=== PATIENT | female | born 1995 | race American Indian/Alaskan Native ===

== ENCOUNTER 2017-11-29 07:04 | Emergency (ER) | payer MEDICAID, OTHER ==
[2017-11-29 07:10] VITALS: BMI 26.7
--- NOTE | 2017-11-29 07:27 | C.PDOC ---
History Of Present Illness 22 year old female presents to ED for evaluation of sharp throbbing back pain and lower abdominal pain since yesterday while at work. Also reports dysuria. Notes her symptoms feel similar to prior UTI. She reports taking Azo without complete relief. Denies trauma, injury, incontinence, extremity weakness/ numbness, fever, chills, nausea, vomiting, diarrhea, or constipation. LMP: 11/19. Time Seen by Provider: 11/29/17 07:10 Chief Complaint (Nursing): Back Pain History Per: Patient History/Exam Limitations: no limitations Onset/Duration Of Symptoms: Days Current Symptoms Are (Timing): Still Present Quality Of Discomfort: Sharp, Pressure Previous Symptoms: Back Pain. denies: Neck Pain, Prior Injury, Prior Surgery Associated Symptoms: None. denies: Incontinence, New Weakness, New Numbness Exacerbating Factor(s): Nothing Recent travel outside of the [place]: No Additional History Per: Patient Past Medical History Reviewed: Historical Data, Nursing Documentation, Vital Signs Vital Signs: Last Vital Signs Temp 98 F 11/29/17 08:52 Pulse 80 11/29/17 08:52 Resp 18 11/29/17 08:52 BP 117/71 11/29/17 08:52 Pulse Ox 96 11/29/17 08:52 Family History: States: Unknown Family Hx - Social History Hx Alcohol Use: No Hx Substance Use: No Review Of Systems Except As Marked, All Systems Reviewed And Found Negative. Constitutional: Negative for: Fever, Chills Gastrointestinal: Positive for: Abdominal Pain. Negative for: Nausea, Vomiting , Diarrhea, Constipation Genitourinary: Positive for: Dysuria. Negative for: Hematuria Musculoskeletal: Positive for: Back Pain Neurological: Negative for: Weakness, Numbness Physical Exam - Physical Exam Appears: Non-toxic, Other (Uncomfortable) Skin: Normal Color, Warm, Dry Head: Atraumatic, Normacephalic Eye(s): bilateral: Normal Inspection, EOMI Oral Mucosa: Moist Neck: Normal ROM, Supple Cardiovascular: Rhythm Regular, No Murmur Respiratory: Normal Breath Sounds, No Rales, No Rhonchi, No Wheezing Gastrointestinal/Abdominal: Soft, Tenderness (mild suprapubic), No Guarding, No Rebound Back: Normal Inspection, No CVA Tenderness, No Vertebral Tenderness, No Paraspinal Tenderness Extremity: Normal ROM, No Deformity Extremity: Bilateral: Atraumatic Neurological/Psych: Oriented x3, Normal Speech ED Course And Treatment O2 Sat by Pulse Oximetry: 95 (RA) Pulse Ox Interpretation: Normal Medical Decision Making Medical Decision Making: Impression: 22 year old female with mild lower abdominal pain, back pain, and dysuria. Plan: * Urinalysis Reassess Urine shows nitrates, LE, WBCs. Will send culture and treat with cipro. Patient given follow up instructions. Instructed to return to ER if symptoms worsen or new symptoms arise. Disposition Counseled Patient/Family Regarding: Diagnosis, Need For Followup, Rx Given - Disposition Referrals: [facility] [Outside] [facility] [Outside] Disposition: HOME/ ROUTINE Disposition Time: 08:36 Condition: STABLE Additional Instructions: Take antibiotic twice daily for 5 days and be sure to finish taking all of antibiotic. Drink plenty of fluids. Take Tylenol or Motrin for pain. 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 - Scribe Statement The provider has reviewed the documentation as recorded by the Lakeshaibjulia Zhou All medical record entries made by the Lakeshaibjulia were at my direction and personally dictated by me. I have reviewed the chart and agree that the record accurately reflects my personal performance of the history, physical exam, medical decision making, and the department course for this patient. I have also personally directed, reviewed, and agree with the discharge instructions and disposition.
[2017-11-29 07:56] LABS: HCG,QUALITATIVE URINE NEGATIVE (NEGATIVE)
[2017-11-29 08:34] LABS: URINE BACTERIA MANY (<OCC); URINE BILIRUBIN NEGATIVE (NEGATIVE); URINE BLOOD 2+ (NEGATIVE); URINE CLARITY Hazy (Clear); URINE COLOR Amber (YELLOW); URINE GLUCOSE (UA) NORMAL (Normal); URINE LEUKOCYTE ESTERASE 2+ Leu/uL (Negative); URINE PROTEIN 2+ mg/dL (NEGATIVE); WBC CLUMPS FEW /hpf
[2017-11-29 09:00] VITALS: BP 117/71; PULSE 80; RESP 18; TEMP 98
[2017-11-29 10:35] VITALS: O2SAT 95
== END 2017-11-29 08:53 | disposition home or self-care (01) ==
LOC: C.ER 07:04
DX: N39.0 Urinary tract infection, site not specified (principal)

== ENCOUNTER 2018-01-05 19:26 | Emergency (ER) | payer MEDICAID ==
[2018-01-05 19:27] VITALS: BMI 26.7
[2018-01-05 19:33] VITALS: BP 122/79; PULSE 93; TEMP 99.1; O2SAT 99
[2018-01-05] MEDS ORDERED: Albuterol-Ipratrop 3 mg / 0.5 (3 ml) UD INH STA (19:45)
[2018-01-05] MEDS ORDERED: Albuterol 0.083% Inhal Sol (2.5 mg/3 mL) UD IH STA (20:00)
--- NOTE | 2018-01-05 20:06 | C.PDOC ---
History Of Present Illness 22 year old female presents to the emergency department with complaints of a dry cough, generalized body aches, chills, sore throat, and ear aches for the last two weeks. Patient states that she has been taking OTC medications with no relief. Patient states that today she experienced shortness of breath and chest tightness so she decided to present to the ED. Time Seen by Provider: 01/05/18 19:34 Chief Complaint (Nursing): Cough, Cold, Congestion History Per: Patient History/Exam Limitations: no limitations Onset/Duration Of Symptoms: Other (two weeks) Current Symptoms Are (Timing): Worse Location Of Pain: Ear(s), Throat, Diffuse Myalgias Associated Symptoms: Chills, Sore Throat, Myalgias, Other (earaches, shortness of breath, chest tightness) Ear Symptoms: Bilateral: Ear Pain Past Medical History Reviewed: Historical Data, Nursing Documentation, Vital Signs Vital Signs: Last Vital Signs Temp 99.1 F 01/05/18 19:30 Pulse 93 H 01/05/18 19:30 Resp 16 01/05/18 19:30 BP 122/79 01/05/18 19:30 Pulse Ox 99 01/05/18 20:45 - Medical History PMH: No Chronic Diseases Surgical History: No Surg Hx Family History: States: No Known Family Hx - Social History Hx Alcohol Use: No Hx Substance Use: No Review Of Systems Except As Marked, All Systems Reviewed And Found Negative. Constitutional: Positive for: Chills, Malaise ENT: Positive for: Ear Pain, Throat Pain Cardiovascular: Positive for: Other (chest tightness) Respiratory: Positive for: Shortness of Breath Physical Exam - Physical Exam Appears: Non-toxic, No Acute Distress Skin: Warm, Dry Head: Atraumatic, Normacephalic Eye(s): bilateral: Normal Inspection, PERRL, EOMI Ear(s): Bilateral: Normal Nose: Normal Oral Mucosa: Moist Throat: Normal, No Erythema, No Exudate Neck: Normal, Trachea Midline, Supple Chest: Symmetrical, No Tenderness Cardiovascular: Rhythm Regular, No Murmur Respiratory: Decreased Breath Sounds (minimally), No Rales, Rhonchi, Wheezing ( exp,minimal) Extremity: Normal ROM Neurological/Psych: Oriented x3, Normal Speech, Normal Cognition ED Course And Treatment O2 Sat by Pulse Oximetry: 99 (RA) Pulse Ox Interpretation: Normal - Radiology CXR: Interpreted by Me, Viewed By Me CXR Interpretation: Yes: No Acute Disease. No: Infiltrates Progress Note: bPlan: CXR. Duoneb 3ml INH. Motrin 600mg PO. Prednisone 40mg PO. Reevaluation Time: 20:37 Reassessment Condition: Improved (Pt feels better, appears comfortable in no distress. Will follwo up with PMD , RX given. Return precautions discusssed) Disposition - Disposition Referrals: [facility] [Outside] Disposition: HOME/ ROUTINE Disposition Time: 20:38 Condition: STABLE Additional Instructions: Increase PO fluids Use medications as directed Return to ER if worse Prescriptions: Albuterol HFA [Ventolin HFA 90 mcg/actuation (8 g)] 2 puff IH [id number] #1 inhaler Azithromycin [Zithromax] 250 mg PO DAILY #6 tab Benzonatate [Tessalon Perles] 100 mg PO TID #14 sgl predniSONE [Prednisone] 40 mg PO DAILY #6 tab Instructions: Acute Bronchitis, Adult (DC) Forms: [employer] (Yi), Work Excuse - Clinical Impression Clinical Impression: Acute bronchitis - PA / SALESPERSON FLYING [employer]QUAD / Resident Statement MD/DO has reviewed & agrees with the documentation as recorded. - Scribe Statement The provider has reviewed the documentation as recorded by the Scribe (Faisal Nieves) All medical record entries made by the Scribe were at my direction and personally dictated by me. I have reviewed the chart and agree that the record accurately reflects my personal performance of the history, physical exam, medical decision making, and the department course for this patient. I have also personally directed, reviewed, and agree with the discharge instructions and disposition.
[2018-01-05] MEDS ORDERED: Albuterol-Ipratrop 3 mg / 0.5 (3 ml) UD ONE (20:08)
[2018-01-05 20:51] VITALS: RESP 20
--- NOTE | 2018-01-06 10:22 | RAD ---
Date of service: 01/05/2018 HISTORY: cough,SOB COMPARISON: No prior. TECHNIQUE: Chest PA and lateral FINDINGS: LUNGS: No active pulmonary disease. PLEURA: No significant pleural effusion identified. No pneumothorax apparent. CARDIOVASCULAR: Normal. OSSEOUS STRUCTURES: No significant abnormalities. VISUALIZED UPPER ABDOMEN: Normal. OTHER FINDINGS: Radiodensity suggestive of a nipple ring noted right breast. IMPRESSION: No acute cardiopulmonary disease appreciated.
== END 2018-01-05 20:50 | disposition home or self-care (01) ==
LOC: C.ER 19:26
DX: J20.9 Acute bronchitis, unspecified (principal)

== ENCOUNTER 2018-05-18 11:37 | Emergency (ER) | payer MEDICAID ==
[2018-05-18 11:37] VITALS: BMI 26.7
[2018-05-18 11:43] VITALS: RESP 18
--- NOTE | 2018-05-18 13:22 | RAD ---
PROCEDURE: Left Knee Radiographs. HISTORY: fall COMPARISON: None available. FINDINGS: BONES: No acute displaced fracture. JOINTS: No dislocation. JOINT EFFUSION: No significant joint effusion. OTHER FINDINGS: None. IMPRESSION: No acute displaced fracture, dislocation, or significant joint effusion identified. If symptoms persist, or if there is continued clinical concern, x-ray follow-up in 7-10 days should be considered.
--- NOTE | 2018-05-18 13:57 | C.PDOC ---
History Of Present Illness 22 y/o female presents to the ED for evaluation of left knee pain which began 3 days ago. 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 Patient reports she had pain right away, but the pain then subsided. Patient has been able to walk on the area. Patient noticed the area appeared more swollen today, and presents to the ED for further evaluation. She denies head injury, LOC, extremity numbness/weakness. Time Seen by Provider: 05/18/18 12:11 Chief Complaint (Nursing): Lower Extremity Problem/Injury History Per: Patient History/Exam Limitations: no limitations Onset/Duration Of Symptoms: Days (3) Current Symptoms Are (Timing): Still Present Additional History Per: Patient - Knee Description Of Injury: Fell Past Medical History Reviewed: Historical Data, Nursing Documentation, Vital Signs Vital Signs: Last Vital Signs Temp 97.4 F L 05/18/18 11:39 Pulse 60 05/18/18 11:39 Resp 18 05/18/18 11:39 BP 121/81 05/18/18 11:39 Pulse Ox 100 05/18/18 11:39 - Medical History PMH: No Chronic Diseases Surgical History: No Surg Hx Family History: States: Unknown Family Hx - Social History Hx Alcohol Use: No Hx Substance Use: No Review Of Systems Musculoskeletal: Positive for: Other (left knee pain ) Neurological: Negative for: Weakness, Numbness, Other (head injury ) Physical Exam - Physical Exam Appears: Non-toxic, No Acute Distress Skin: Normal Color, Warm, Dry, No Other (abrasions, erythema or warmth to left knee ) Head: Atraumatic, Normacephalic Eye(s): bilateral: Normal Inspection Extremity: Normal ROM, Tenderness (diffuse, over left knee ), No Calf Tenderness, Capillary Refill (less than 2 seconds ), Swelling (left suprapatellar) Pulses: Left Dorsalis Pedis: Normal, Right Dorsalis Pedis: Normal Neurological/Psych: Oriented x3, Normal Speech, Normal Cognition, Normal Motor, Normal Sensation Gait: Steady ED Course And Treatment O2 Sat by Pulse Oximetry: 100 (on RA) Pulse Ox Interpretation: Normal - Other Rad left knee XR X-Ray: Viewed By Me, Read By Radiologist Interpretation: PROCEDURE: Left Knee Radiographs. HISTORY: fall. COMPARISON: None available. FINDINGS: BONES: No acute displaced fracture. JOINTS: No dislocation. JOINT EFFUSION: No significant joint effusion. OTHER FINDINGS: None. IMPRESSION: No acute displaced fracture, dislocation, or significant joint effusion identified. If symptoms persist, or if there is continued clinical concern, x-ray follow-up in 7-10 days should be considered. Progress Note: left knee XR ordered and reviewed. On reassessment, patient is resting comfortably, showing no signs of distress and is stable for discharge. Knee immobilizer and crutces provided. Patient will be discharged with Motrin for pain and is advised to f/u orthopedic care within 1-2 days for further evaluation. Disposition - Disposition Referrals: David Springer MD [Staff Provider] - Disposition: HOME/ ROUTINE Disposition Time: 13:50 Condition: STABLE Additional Instructions: Follow up with Orthopedist within 1-2 days. Return to ED if feel worse. Prescriptions: Ibuprofen [Motrin Tab] 600 mg PO Q8 #30 tab Instructions: Knee Sprain (DC) Forms: [employer] (Georgian), Work Excuse - Clinical Impression Clinical Impression: Knee sprain - PA / MANAGER PRODUCTION / Resident Statement MD/DO has reviewed & agrees with the documentation as recorded. - Scribe Statement The provider has reviewed the documentation as recorded by the Scribe (Rosie Zhou) All medical record entries made by the Scribe were at my direction and personally dictated by me. I have reviewed the chart and agree that the record accurately reflects my personal performance of the history, physical exam, medical decision making, and the department course for this patient. I have also personally directed, reviewed, and agree with the discharge instructions and disposition.
[2018-05-18 14:26] VITALS: BP 114/77; PULSE 64; TEMP 98.2
[2018-05-18 15:26] VITALS: O2SAT 100
== END 2018-05-18 14:18 | disposition home or self-care (01) ==
LOC: C.ER 11:37
DX: S83.92XA Sprain of unspecified site of left knee, initial encounter (principal); W01.0XXA Fall on same level from slipping, tripping and stumbling without subsequent striking against object, initial encounter

== ENCOUNTER 2018-05-21 13:15 | Emergency (ER) | payer MEDICAID ==
[2018-05-21 13:15] VITALS: BMI 26.7
[2018-05-21 13:31] VITALS: BP 122/69; PULSE 91; RESP 16; TEMP 98.2; O2SAT 95
--- NOTE | 2018-05-21 14:00 | C.PDOC ---
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 She was evaluated in the ED for complaints of left knee pain on 05/18 and underwent an XR which was negative. Patient was discharged with referral for orthopedic care and prescription for Motrin. Patient states she has not been able to schedule a follow-up appointment and has not had time to fill her prescription. She reports feeling a "cracking" when she bends and extends her knee. She denies any recent trauma/injuries or extremity numbness/weakness. Time Seen by Provider: 05/21/18 13:37 Chief Complaint (Nursing): Lower Extremity Problem/Injury History Per: Patient History/Exam Limitations: no limitations Onset/Duration Of Symptoms: Days Current Symptoms Are (Timing): Still Present Additional History Per: Patient - Knee Description Of Injury: Fell (left) Past Medical History Reviewed: Historical Data, Nursing Documentation, Vital Signs Vital Signs: Last Vital Signs Temp 98.2 F 05/21/18 13:28 Pulse 91 H 05/21/18 13:28 Resp 16 05/21/18 13:28 BP 122/69 05/21/18 13:28 Pulse Ox 95 05/21/18 13:28 - Medical History PMH: No Chronic Diseases Surgical History: No Surg Hx Family History: States: Unknown Family Hx - Social History Hx Alcohol Use: No Hx Substance Use: No Review Of Systems Musculoskeletal: Positive for: Other (left knee pain ) Neurological: Negative for: Weakness, Numbness Physical Exam - Physical Exam Appears: Non-toxic, No Acute Distress Skin: Normal Color, Warm, Dry, No Ecchymosis Head: Atraumatic, Normacephalic Eye(s): bilateral: Normal Inspection Extremity: Normal ROM, Tenderness (over left patella and quadriceps tendon), Capillary Refill (less than 2 seconds ), No Swelling (left knee ) Neurological/Psych: Oriented x3, Normal Speech, Normal Cognition Gait: Steady ED Course And Treatment O2 Sat by Pulse Oximetry: 95 (on RA ) Pulse Ox Interpretation: Normal Medical Decision Making Medical Decision Making: Patient already had negative knee XR 3 days ago. Has a knee immobilizer and an Rx for ibuprofen from her previous visit as well. She has not filled the Rx. Advised taking ibuprofen at home and following up with ortho or PMD. Patient made an appointment with her PMD for tomorrow. Stable for discharge home. Disposition - Disposition Disposition: HOME/ ROUTINE Disposition Time: 14:00 Condition: GOOD Additional Instructions: MARY PARHAM, thank you for letting us take care of you today. Your provider was Emiliana Upton MD and you were treated for LT KNEE PAIN. The emergency medical care you received today was directed at your acute symptoms. If you were prescribed any medication, please fill it and take as directed. It may take several days for your symptoms to resolve. Return to the Emergency Department if your symptoms worsen, do not improve, or if you have any other problems. Please contact your doctor or call one of the physicians/clinics you have been referred to that are listed on the Patient Visit Information form that is included in your discharge packet. Bring any paperwork you were given at discharge with you along with any medications you are taking to your follow up visit. Our treatment cannot replace ongoing medical care by a primary care provider outside of the emergency department. Thank you for allowing the [facility] team to be part of your care today. If you had an X-Ray or CT scan: A Radiologist will review the ED reading if any change in treatment is needed we will contact you. If you had a blood, urine, or wound culture: It will take several days for the results, if any change in treatment is needed we will contact you. If you had an STI test: It will take 48 hours for the results. Please call after 1 week if you have not heard back. Please follow up with your primary care physician and with orthopedics as referred during your previous visit. Take ibuprofen as prescribed during your pr evious visit. Instructions: Knee Sprain (DC) Forms: [employer] (French) - Clinical Impression Clinical Impression: Left knee sprain - Scribe Statement The provider has reviewed the documentation as recorded by the Scribe (Rosie Zhou) Provider Attestation: All medical record entries made by the Scribe were at my direction and personally dictated by me. I have reviewed the chart and agree that the record accurately reflects my personal performance of the history, physical exam, medical decision making, and the department course for this patient. I have also personally directed, reviewed, and agree with the discharge instructions and disposition.
== END 2018-05-21 14:11 | disposition home or self-care (01) ==
LOC: C.ER 13:15
DX: S83.92XA Sprain of unspecified site of left knee, initial encounter (principal); W19.XXXA Unspecified fall, initial encounter

== ENCOUNTER 2018-07-20 12:14 | Emergency (ER) | payer MEDICAID ==
[2018-07-20 12:15] VITALS: BMI 26.7
[2018-07-20 12:27] VITALS: TEMP 98; O2SAT 100
--- NOTE | 2018-07-20 13:51 | C.PDOC ---
History Of Present Illness The patient reports that she woke up this morning with mid sternal chest pain which is described as sharp and non-radiating. The patient states that she works doing a lot of heavy lifting. Patient reports that pain is worsened with movement and deep breathing. Denies fever, numbness, weakness, cough, vomiting, diaphoresis. Time Seen by Provider: 07/20/18 12:41 Chief Complaint (Nursing): Chest Pain History Per: Patient History/Exam Limitations: no limitations Onset/Duration Of Symptoms: Gradual Current Symptoms Are (Timing): Still Present Pain Scale Rating Of: 6 Quality: Sharp Exacerbating Factors: Turning, Movement Recent travel outside of the [place]: No Past Medical History Reviewed: Historical Data, Nursing Documentation, Vital Signs Vital Signs: Last Vital Signs Temp 98 F 07/20/18 12:21 Pulse 65 07/20/18 12:21 Resp 16 07/20/18 12:21 BP 122/75 07/20/18 12:21 Pulse Ox 100 07/20/18 12:21 - Medical History PMH: No Chronic Diseases Surgical History: No Surg Hx Family History: States: Unknown Family Hx - Social History Hx Alcohol Use: Yes (glass a day of wine) Hx Substance Use: No - Immunization History Hx Influenza Vaccination: No Hx Pneumococcal Vaccination: No Review Of Systems Except As Marked, All Systems Reviewed And Found Negative. Cardiovascular: Positive for: Chest Pain Physical Exam - Physical Exam Appears: Non-toxic, No Acute Distress Skin: Normal Color, Warm Head: Atraumatic, Normacephalic Eye(s): bilateral: Normal Inspection, PERRL, EOMI Ear(s): Bilateral: Normal Oral Mucosa: Moist Throat: No Erythema, No Exudate Neck: Normal ROM, Supple Cardiovascular: Rhythm Regular Respiratory: Normal Breath Sounds, No Rales, No Rhonchi, No Wheezing Gastrointestinal/Abdominal: Bowel Sounds (active), Soft, No Tenderness Back: Normal Inspection, No CVA Tenderness, No Vertebral Tenderness Extremity: Normal ROM, No Tenderness, No Swelling Neurological/Psych: Oriented x3, Normal Speech, Normal Motor Gait: Steady ED Course And Treatment ECG: Interpreted By Me ECG Rhythm: Sinus Rhythm ECG Interpretation: Normal Interpretation Of ECG: normal axis, normal R wave progression Rate From EC O2 Sat by Pulse Oximetry: 100 (on RA) Pulse Ox Interpretation: Normal Medical Decision Making Medical Decision Making: Patient has low cardiac risk and PERC rule negative. On re-exam, the patient reports improvement of symptoms. Lungs are CTA, heart is RRR, abdomen is soft, non-tender and tolerating PO well. Pt is ambulatory in the ED with steady gait. Follow up with the medical doctor within 1-2 days. Return if worsened. Disposition - Disposition Referrals: [facility] [Outside] [facility] [Outside] Disposition: HOME/ ROUTINE Disposition Time: 14:44 Condition: GOOD Additional Instructions: \ Follow up with the medical doctor within 1-2 days. Return if worsened. Prescriptions: Naproxen [Naprosyn] 500 mg PO BID #20 tab Instructions: Costochondritis (DC) Forms: [employer] (Jordanian), Work Excuse - Clinical Impression Clinical Impression: Costochondritis
--- NOTE | 2018-07-20 14:24 | RAD ---
HISTORY: chest pain, COMPARISON: Chest x-ray performed 01/05/18 TECHNIQUE: Chest PA and lateral FINDINGS: Streaky artifact projects over the upper lobes and neck related to patient's hair. LUNGS: No focal consolidation. Please note that chest x-ray has limited sensitivity for the detection of pulmonary masses. PLEURA: No significant pleural effusion identified. No definite pneumothorax . CARDIOVASCULAR: Heart size appears within normal limits. No atherosclerotic calcification present. OSSEOUS STRUCTURES: No acute osseous abnormality identified. VISUALIZED UPPER ABDOMEN: Unremarkable. OTHER FINDINGS: Right-sided nipple ring. IMPRESSION: No focal consolidation.
[2018-07-20 14:33] LABS: HCG,QUALITATIVE URINE NEGATIVE (NEGATIVE)
[2018-07-20 14:34] VITALS: BP 119/56; PULSE 77; RESP 17
[2018-07-20 14:48] LABS: SQUAMOUS EPITHIAL 5 /hpf (0-5); URINE BILIRUBIN NEGATIVE (NEGATIVE); URINE BLOOD NEGATIVE (NEGATIVE); URINE CLARITY Hazy (Clear); URINE COLOR Yellow (YELLOW); URINE GLUCOSE (UA) NORMAL (Normal); URINE LEUKOCYTE ESTERASE NEG Leu/uL (Negative); URINE PROTEIN NEGATIVE (NEGATIVE); URINE UROBILINOGEN NORMAL mg/dL (0.2-1.0)
--- NOTE | 2018-07-22 22:50 | CARD ---
APPROVED REPORT Date of service: 07/20/2018 EKG Measurement Heart [id number] <Conclusion> Normal sinus rhythm Normal ECG
== END 2018-07-20 15:05 | disposition home or self-care (01) ==
LOC: C.ER 12:14
DX: M94.0 Chondrocostal junction syndrome [Tietze] (principal)